=== PATIENT | female | born 1990 | race Caucasian/White ===

== ENCOUNTER 2017-11-30 19:41 | Emergency (ER) | payer BC ==
[~2017-11-30] VITALS: Ht 157.5 cm; Wt 96.9 kg
[~2017-11-30 19:41] MED LIST: FERR1TAB23 PO; OMEP20CA9 PO
[2017-11-30 19:55] VITALS: TEMP 36.9; Ht 157.5 cm; Wt 96.9 kg
[2017-11-30] MEDS ORDERED: BCPILLS PO (20:00)
[2017-11-30] MEDS ORDERED: MISC4CAP PO (20:00)
[2017-11-30] MEDS ORDERED: ACETAMINOPHEN 500 MG TAB PO STA (20:25)
[2017-11-30] MEDS ORDERED: ONDA4TAB10 SL (20:28)
[2017-11-30] MEDS ORDERED: ONDANSETRON HOME PACK 4MG OD TAB PO ONE (20:30)
[2017-11-30 20:54] VITALS: BP 119/67; PULSE 82; O2SAT 98
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
== END 2017-11-30 20:54 | disposition home or self-care (01) ==
LOC: C.EDB 19:44 → C.EDD 20:54
DX: S06.0X9A Concussion with loss of consciousness of unspecified duration, initial encounter (principal); S16.1XXA Strain of muscle, fascia and tendon at neck level, initial encounter; V49.40XA Driver injured in collision with unspecified motor vehicles in traffic accident, initial encounter; Y92.410 Unspecified street and highway as the place of occurrence of the external cause; Z79.3 Long term (current) use of hormonal contraceptives